=== PATIENT | female | born 1935 | race Caucasian/White ===

== ENCOUNTER 2025-04-03 20:50 | Observation (INO) | payer OTHER, SELFPAY ==
[2025-04-03 16:58] VITALS: BP 129/56
[2025-04-03 16:59] LABS: Glucose - Point of Care 147 mg/dl (70-99)
[2025-04-03 17:01] VITALS: BP 113/54
[2025-04-03 17:02] VITALS: BP 118/61
--- NOTE | 2025-04-03 17:10 | ED.GENMED ---
History of Present Illness
<FERN Brian - Last Filed: 04/04/25 01:20>
General
Chief Complaint: Change in Mental Status
Source: patient
Exam Limitations: none
Time Seen by Provider: 04/03/25 17:07
Nursing documentation reviewed up to this point in time: agreed with
History of Present Illness
History of Present Illness:
89-year-old female brought by family for change in mental status. Family reports 20 minutes prior to arrival patient was sitting in a car as a passenger and disoriented falling asleep and was not able to stand. They drove pt directly to the ED.
Approximately 3:45 PM the initial episode started when family describes patient was a passenger in a car and started to become confused. She told family that she fell like she was in a tunnel. They got her chocolate bar and symptoms seem to
improve until 20 minutes ago when she could not stand to get out of the car. They do note that patient seems garbled.
Patient presents sleepy falling asleep however will open her eyes. She will answer questions appropriately. She will follow commands. Her speech is garbled family reports this is new. Stroke alert was called.
Family reports patient is visiting from [place]. Her son recently and the service was on Wednesday 3 days ago.
They do not believe that she is on blood thinners.
Phy Exam
<FERN Brian - Last Filed: 04/04/25 01:20>
General Physical Exam
General Presentation: no apparent distress
General age: appears stated age
General Skin: warm and dry
General Habitus: elderly
General Mental: other (tearful )
General Hydration: appears well hydrated
Cardiovascular Exam
Cardiovascular Exam: regular rate/rhythm, no murmur and normal peripheral pulses
Pulmonary Exam
Pulmonary Exam: lungs clear and no respiratory distress
Neurological Exam
Neurological Exam: alert, oriented x3, no motor deficits, no sensory deficits and other (speech garbled )
NIH Stroke Score
Level of Consciousness: 1 - Arousable
LOC questions: 0-Answers both correctly
LOC Commands: 0-Performs both correctly
Best Gaze: 0-Normal
Visual Rod: 0=Normal, no visual loss
Facial palsy: 0=Normal, symmetrical
Motor - Right Arm: 0=No drift 10 seconds
Motor - Left Arm: 0=No drift 10 seconds
Motor - Right Le-No drift 5 seconds
Motor - Left Le-No drift 5 seconds
Limb Ataxia: 0-Absent
Sensation: 0-Normal
Best Language: 0-No aphasia
Dysarthria: 1-Mild slurring
Extinction and Inattention: 0-No abnormality
Total Score:: 2
[place] Coma Scale
Eye Opening: Spontaneous
Verbal Response: Oriented
Motor Response: Obeys Commands
GCS Total Score: 15
Musculoskeletal Exam
Musculoskeletal Exam: full ROM
Skin Exam
Skin Exam: normal color and warm/dry
Psychiatric Exam
Psychiatric Exam: normal mood/affect
<Emmanuel Whitney DO - Last Filed: 04/03/25 17:47>
NIH Stroke Score
Total Score:: 2
[place] Coma Scale
GCS Total Score: 15
Course
<FERN Brian - Last Filed: 04/04/25 01:20>
Orders/Labs/Results
Orders:
Orders
04/03/25 Dinner
1800 calorie (15 carb) Diabetic
At Your Request: Limited Participation
Does patient need a safe tray?: No
04/03/25 16:57
EKG [Electrocardiogram (*1)] Urgent
Reason for Study: Chest Pain
EKG- Treatment ONCE
04/03/25 16:58
Bedside Glucose- Treatment ONCE
IV Insert/Care/Rem.- Treatment PRN
O2 Therapy [RESP] Urgent
Titrate/Wean O2 to maintain O2 sat greater than (%): 93
Special Instructions: MAINTAIN CONTINUOUS O2 SATS > OR = 93%
04/03/25 17:00
CT HEAD STROKE ALERT W/o Cont Urgent
Comment:
Reason For Exam: sudden shange in mental status
04/03/25 17:01
Bedside Glucose- Treatment ONCE
04/03/25 17:03
Complete Blood Count/With Diff Urgent
Comprehensive Metabolic Panel Urgent
PTT Urgent
Prothrombin Time Urgent
Troponin I Urgent
04/03/25 17:09
CT BRAIN PERF STROKE ALERT Urgent
Reason For Exam: dysarthruia
CT HEAD/NECK ANG STROKE ALERT Urgent
Reason For Exam: dysarhtia change in ms
04/03/25 17:14
0.9% Sodium Chloride 1000 ml [Nss] 1,000 ml IV BOLUS
04/03/25 18:19
UA Reflex to Culture [Urinalysis Reflex To Culture] Urgent
Date Specimen was Collected: 04/03/25
Time Specimen was Collected: 18:18
04/03/25 18:39
COVID-19 Antigen Urgent
Source: Nasal Swab
Influenza A+B Rapid Molecular Urgent
JANAY Source: Nasal Swab
Specimen Description:
04/03/25 20:00
Admit/Transfer Patient As Directed
Co-Sign Provider:
Level of Care: Observation services
Assign to:: Telemetry
Physician / Group: maximiliano luna
Diagnosis: acute confusion drowsiness 2/2 accidental OD gabapentin
Reason for Telemetry: Arrhythmia
Date to Stop Telemetry: 04/06/25
Time to Stop Telemetry: 11:00
Code Status As Directed
Resuscitation Status: Full Code
04/03/25 20:03
PRN Pain Medication Management As Directed
May give lesser potent ordered pain med per pt: Yes
preference::
Protocol:: Medication orders for pain may be administered in a
manner that supports deferring to patient preference
when the pt is:
- Requesting an ordered lesser potent pain medication.
Least to most potent pain medications are defined
as: acetaminophen < NSAID < tramadol < opioids
(morphine, oxycodone, hydromorphone).
- Requesting a lesser dose of the same medication IF
ORDERED.
- Requesting a less intrusive route of administration
if both routes are prescribed by the provider (PO <
IV).
04/03/25 20:24
Consult Neurology [NEUROLOGY CONSULT] Routine
Consulting Provider: Michael Shelby
Was physician already notified: Yes
Reason for consult: confusion likely 2/2 accidental gabapentin overdose
04/03/25 22:17
Acetaminophen [Tylenol] 650 mg PO Q4HPRN PRN
04/03/25 22:17
Activity As Directed
Activity Level: With Assistance
Intake/ Output As Directed
Frequency: Per unit guidelines
Neurological Checks As Directed
Frequency: q4h
Pneumatic Compression Sleeves As Directed
Type: Knee high
Vital Signs As Directed
Frequency: Per unit guidelines
Weight As Directed
Frequency: Daily
Ot Eval And Treat Routine
Pt Eval And Treat Routine
Activity Level: With Assistance
DX Deep Vein Thrombosis Video Routine
04/04/25 06:00
Cardiovascular Evaluation IN AM
Complete Blood Count/With Diff IN AM
Comprehensive Metabolic Panel IN AM
Hgba1c [Glycohemoglobin (HgbA1c)] IN AM
04/04/25 07:00
Levothyroxine [Synthroid] 50 mcg PO DAILY@0700
04/04/25 08:00
Amlodipine [Norvasc] 2.5 mg PO DAILY
Atorvastatin [Lipitor] 20 mg PO DAILY
Carvedilol [Coreg] 3.125 mg PO BID
Ezetimibe [Zetia] 10 mg PO DAILY
04/06/25 11:00
DC Protocol for Telemetry ONCE
Abnormal Lab Results
04/03/25 04/03/25
16:58 17:03
WBC 4.2 L 10^3/uL
(4.8-10.8)
RBC 4.02 L 10^6/uL
(4.20-5.40)
Hct 36.9 L %
(37.0-47.0)
MCHC 32.8 L g/dL
(33.0-37.0)
MPV 10.9 H fL
(7.4-10.4)
Absolute Lymphs (auto) 1.1 L 10^3/uL
(1.2-3.4)
Absolute Monos (auto) 0.8 H 10^3/uL
(0.1-0.6)
Monocytes % 18.5 H %
(1.7-9.3)
PT 14.7 H Sec
(11.4-14.6)
BUN 20 H mg/dl
(7-17)
Glucose 155 H mg/dl
(70-99)
POC Glucose 147 H mg/dl
(70-99)
04/03/25 17:03
04/03/25 17:03
Vital Signs
Initial and Last Documented VS:
Initial Vital Signs
Pulse Resp BP Pulse Ox
77 16 129/56 97
04/03/25 16:58 04/03/25 16:58 04/03/25 16:58 04/03/25 16:58
Last Documented Vital Signs
Temp Pulse Resp BP Pulse Ox
97.6 F 75 15 130/54 98
04/03/25 23:19 04/03/25 23:19 04/03/25 23:19 04/03/25 23:19 04/03/25 23:19
Street Light Repairer Helper consulted with Physician
Street Light Repairer Helper consulted with physician?: Yes
Name of Physician Consulted: Devonte
<Emmanuel Coon Devonte, DO - Last Filed: 04/03/25 17:47>
Orders/Labs/Results
Orders:
Orders
04/03/25 Dinner
1800 calorie (15 carb) Diabetic
At Your Request: Limited Participation
Does patient need a safe tray?: No
04/03/25 16:57
EKG [Electrocardiogram (*1)] Urgent
Reason for Study: Chest Pain
EKG- Treatment ONCE
04/03/25 16:58
Bedside Glucose- Treatment ONCE
IV Insert/Care/Rem.- Treatment PRN
O2 Therapy [RESP] Urgent
Titrate/Wean O2 to maintain O2 sat greater than (%): 93
Special Instructions: MAINTAIN CONTINUOUS O2 SATS > OR = 93%
04/03/25 17:00
CT HEAD STROKE ALERT W/o Cont Urgent
Comment:
Reason For Exam: sudden shange in mental status
04/03/25 17:01
Bedside Glucose- Treatment ONCE
04/03/25 17:03
Complete Blood Count/With Diff Urgent
Comprehensive Metabolic Panel Urgent
PTT Urgent
Prothrombin Time Urgent
Troponin I Urgent
04/03/25 17:09
CT BRAIN PERF STROKE ALERT Urgent
Reason For Exam: dysarthruia
CT HEAD/NECK ANG STROKE ALERT Urgent
Reason For Exam: dysarhtia change in ms
04/03/25 17:14
0.9% Sodium Chloride 1000 ml [Nss] 1,000 ml IV BOLUS
04/03/25 18:19
UA Reflex to Culture [Urinalysis Reflex To Culture] Urgent
Date Specimen was Collected: 04/03/25
Time Specimen was Collected: 18:18
04/03/25 18:39
COVID-19 Antigen Urgent
Source: Nasal Swab
Influenza A+B Rapid Molecular Urgent
JANAY Source: Nasal Swab
Specimen Description:
04/03/25 20:00
Admit/Transfer Patient As Directed
Co-Sign Provider:
Level of Care: Observation services
Assign to:: Telemetry
Physician / Group: maximiliano luna
Diagnosis: acute confusion drowsiness 2/2 accidental OD gabapentin
Reason for Telemetry: Arrhythmia
Date to Stop Telemetry: 04/06/25
Time to Stop Telemetry: 11:00
Code Status As Directed
Resuscitation Status: Full Code
04/03/25 20:03
PRN Pain Medication Management As Directed
May give lesser potent ordered pain med per pt: Yes
preference::
Protocol:: Medication orders for pain may be administered in a
manner that supports deferring to patient preference
when the pt is:
- Requesting an ordered lesser potent pain medication.
Least to most potent pain medications are defined
as: acetaminophen < NSAID < tramadol < opioids
(morphine, oxycodone, hydromorphone).
- Requesting a lesser dose of the same medication IF
ORDERED.
- Requesting a less intrusive route of administration
if both routes are prescribed by the provider (PO <
IV).
04/03/25 20:24
Consult Neurology [NEUROLOGY CONSULT] Routine
Consulting Provider: Michael Shelby
Was physician already notified: Yes
Reason for consult: confusion likely 2/2 accidental gabapentin overdose
04/03/25 22:17
Acetaminophen [Tylenol] 650 mg PO Q4HPRN PRN
04/03/25 22:17
Activity As Directed
Activity Level: With Assistance
Intake/ Output As Directed
Frequency: Per unit guidelines
Neurological Checks As Directed
Frequency: q4h
Pneumatic Compression Sleeves As Directed
Type: Knee high
Vital Signs As Directed
Frequency: Per unit guidelines
Weight As Directed
Frequency: Daily
Ot Eval And Treat Routine
Pt Eval And Treat Routine
Activity Level: With Assistance
DX Deep Vein Thrombosis Video Routine
04/04/25 06:00
Cardiovascular Evaluation IN AM
Complete Blood Count/With Diff IN AM
Comprehensive Metabolic Panel IN AM
Hgba1c [Glycohemoglobin (HgbA1c)] IN AM
04/04/25 07:00
Levothyroxine [Synthroid] 50 mcg PO DAILY@0700
04/04/25 08:00
Amlodipine [Norvasc] 2.5 mg PO DAILY
Atorvastatin [Lipitor] 20 mg PO DAILY
Carvedilol [Coreg] 3.125 mg PO BID
Ezetimibe [Zetia] 10 mg PO DAILY
04/06/25 11:00
DC Protocol for Telemetry ONCE
Abnormal Lab Results
04/03/25 04/03/25
16:58 17:03
WBC 4.2 L 10^3/uL
(4.8-10.8)
RBC 4.02 L 10^6/uL
(4.20-5.40)
Hct 36.9 L %
(37.0-47.0)
MCHC 32.8 L g/dL
(33.0-37.0)
MPV 10.9 H fL
(7.4-10.4)
Absolute Lymphs (auto) 1.1 L 10^3/uL
(1.2-3.4)
Absolute Monos (auto) 0.8 H 10^3/uL
(0.1-0.6)
Monocytes % 18.5 H %
(1.7-9.3)
PT 14.7 H Sec
(11.4-14.6)
BUN 20 H mg/dl
(7-17)
Glucose 155 H mg/dl
(70-99)
POC Glucose 147 H mg/dl
(70-99)
04/03/25 17:03
04/03/25 17:03
Vital Signs
Initial and Last Documented VS:
Initial Vital Signs
Pulse Resp BP Pulse Ox
77 16 129/56 97
04/03/25 16:58 04/03/25 16:58 04/03/25 16:58 04/03/25 16:58
Last Documented Vital Signs
Temp Pulse Resp BP Pulse Ox
97.6 F 75 15 130/54 98
04/03/25 23:19 04/03/25 23:19 04/03/25 23:19 04/03/25 23:19 04/03/25 23:19
<FERN Brian - Last Filed: 04/04/25 01:20>
MDM/Problems Addressed
Differential Diagnosis Includes:
Not limited to acute stroke metabolic encephalopathy
MDM/Problems Addressed:
As documented patient was brought by family. Patient is a 89-year-old female with acute change in mental status. Initial episode occurred at 3:45pm then a second episode occurred 20 minutes prior to arrival. Patient became suddenly confused
disoriented falling asleep and was not able to stand witnessed by family. Patient presented to the ER sleepy however will open her eyes and answer questions. Her speech is garbled. This is new as per family. Stroke alert was called. She had no
focal upper or lower extremity deficits. She is oriented.
CT head neg.
pt is from [place],
1740: I spoke with telestroke at [facility], neurology fellow . Case reviewed patient's presentation reviewed. Dr. Mares was able to visualize brain.
perfusion and head and neck CTA and does not see any abnormalities or large vessel occlusion.
Patient's speech seems to be improving as per family. She remains now awake alert family at bedside she is speaking with family; no focal deficit visualized.
Will adm for change in MS
Chronic conditions affecting care:
CHF hypertension hyperlipidemia,stroke
<FERN Brian - Last Filed: 04/04/25 01:20>
*Radiology
Radiology exam reviewed: radiology read reviewed
*Pulse Oximetry
SaO2: 98
Oxygen Mode of Delivery: Room air
Patient hypoxic: no
*Critical Care Note
Total Time (30-74mins, 75-104mins- exclusive of procedures): Not Applicable
ED Attending Note
<FERN Brian - Last Filed: 04/04/25 01:20>
-
Portions of this chart may have been created with voice recognition software.� Occasional wrong word or��sound alike� substitutions may have occurred due to the inherent limitations of voice recognition software.
<Emmanuel Whitney DO - Last Filed: 04/03/25 17:47>
ED Attending Note
Patient seen and examined by attending physician: Yes
I performed the substantive portion of visit, reviewed & personally made and approve the management plan that is documented in note by myself or MARCIA.: Yes
ED Attending Note:
I evaluated the patient bedside. The patient is dysarthric and frequently keeps her eyes closed. When we sat her up in bed she seemed to open them more. The etiology of her symptoms is unclear. She has no focal extremity motor deficits and
appears generally weak. Unclear if this is more metabolic or medication related. [facility] was notified and recommends against TNK and there is no LVO.
Discharge Plan
Departure
Patient Disposition: Admit
Date of Disposition: 04/03/25
Time of Disposition: 18:39
Admit to: Telemetry
Admit to doctor: hospitalist
Presentation/result/management discussed w/ accepting MD/DO: Hospitalist
Patient with high blood pressure during this ER visit?: No
Condition: Fair
Covid-19: Not Applicable
Discharge Problem:
Acute alteration in mental status
Interventions
Interventions:
*Risk Screen - Suicide Last Done: 04/03/25 17:12
*General Assessment Last Done: 04/03/25 17:12
*Neglect/Abuse Screening Last Done: 04/03/25 17:12
*ED- Fall Risk Assessment Last Done: 04/03/25 22:27
*ED COVID-19 Vaccine History Last Done: 04/03/25 17:12
*ED Influenza Vaccine History Last Done: 04/03/25 17:12
*Nursing Disposition Last Done: 04/03/25 22:27
ED- Pulmonary Assessment Last Done: 04/03/25 17:12
ED- Neurological Assessment Last Done: 04/03/25 17:35
ED- Cardiac Assessment Last Done: 04/03/25 17:12
ED Swallowing Screen Last Done: 04/03/25 17:12
[2025-04-03 17:18] LABS: Hematocrit 36.9 % (37.0-47.0); Hemoglobin 12.1 g/dL (12.0-16.0); Mean Corp Hgb Conc. 32.8 g/dL (33.0-37.0); Mean Corpuscular Volume 91.8 fL (81.0-99.0); Nucleated Red Blood Cells % 0 %; Platelet Count 141 10^3/uL (130-400); Red Cell Dist. Width 14.5 % (11.5-14.5)
[2025-04-03 17:31] LABS: APTT 32.1 Sec (23.4-35.0); INR 1.12; PT 14.7 Sec (11.4-14.6)
[2025-04-03 17:36] LABS: ALT (SGPT) 18 U/L (0-35); AST (SGOT) 22 U/L (14-36); Albumin 4.1 g/dl (3.5-5.0); Alkaline Phosphatase 85 U/L (38-126); Blood Urea Nitrogen 20 mg/dl (7-17); Calcium 8.9 mg/dl (8.4-10.2); Carbon Dioxide 28 mmol/L (22-30); Chloride 102 mmol/L (98-107); Glucose 155 mg/dl (70-99); Potassium 4.1 mmol/L (3.5-5.1); Sodium 135 mmol/L (135-145); Total Protein 7.0 g/dl (6.3-8.2); eGFR 53.85
[2025-04-03 17:42] LABS: Troponin I < 0.012 ng/ml
[2025-04-03] MEDS: NSS 1000 IV (17:46)
[2025-04-03 18:00] VITALS: BP 118/53
[2025-04-03 18:33] LABS: Urine Character Clear (Clear)
--- NOTE | 2025-04-03 18:35 | HPS.HSE ---
Family Physician
-
Family Physician:
Chief Complaint
-
Confusion, lethargy
History of Present Illness
89-year-old female from [place] came to attend her son's Wednesday 3 days ago and while driving in a car today as a passenger at 3:15 PM she was reportedly complaining of feeling like she was in a tunnel with a feeeling from her head to
her toes and she started to become confused asking her niece 'what are we talking about'. Her niece reports She gave her a chocolate bar which seemed to improve until 20 minutes ago when she will to stand and get out of the car outside . The
family then decided to bring her to the ER for Eval They also felt that her speech was somewhat garbled. In the ER she presented lethargic fall asleep but did open eyes and answer questions appropriately for ER stay. A stroke alert was called
patient had CTA and neck with no large occlusion TNK was not did. The pt typically lives by herself, drives a car and is fullyn indepenedent. She is currently having a hard time staying awake . I spoke with [facility] who reports
patient was prescribed gabapentin and october 600 mg 4 times daily. Her she was taking that for her neck pain. It does not appear that she tapered up on this medication as it was prescribed 600 mg in October 4 times daily. She took 600 mg at 9 AM then
again at 12 PM for getting in the car with her niece to go out shortly after going on their way she started saying she felt a little loopy.
She has past medical history of hypertension, hyperlipidemia, CVA, urinary stress incontinence, arthritis .
Medical History
Past Medical History
Past Medical History: Reports Other
Additional Past Medical History:
HTN
HLD
CHF
Urinary stress incontinence
Chronic arthritic pain
Past Surgical History: Reports Other
Additional Past Surgical History:
Appendectomy
Back surgery
Social History
Tobacco: Non-smoker
Alcohol: Occasional
Personal: Single
Living: Alone
Employment: Retired
Family History
Family History: Not pertinent
Allergies / Home Medications
Allergies reflects when Allergies were last updated in [facility].
Home Medications with original date entered in [facility]
Allergy/Medication List:
Allergies
Allergy/AdvReac Type Severity Reaction Status Date / Time
No Known Allergies Allergy Unverified 04/03/25 17:00
Home Medications
amlodipine 2.5 mg tablet 2.5 mg PO DAILY 04/03/25
atorvastatin 20 mg tablet 20 mg PO DAILY 04/03/25
carvedilol 3.125 mg tablet 3.125 mg PO BID 04/03/25
ezetimibe 10 mg tablet 10 mg PO DAILY 04/03/25
furosemide 20 mg tablet 20 mg PO BID 04/03/25
gabapentin 600 mg tablet 600 mg PO QID 04/03/25
levothyroxine 50 mcg tablet 50 mcg PO DAILY@07 04/03/25
potassium chloride 8 mEq tablet,extended release 16 meq PO DAILY 04/03/25
spironolactone 25 mg tablet 25 mg PO DAILY 04/03/25
trospium 20 mg tablet 20 mg PO DAILY 04/03/25
Review of Systems
-
History Source: Patient and Family (To niece at bedside)
A 12 point ROS was completed and negative except as noted: Yes
Constitutional: Reports Fatigue and Other (Drowsy, falling asleep during exam poor recall of history)
EENT: Denies Sore Throat or Runny Nose
Respiratory: Denies Cough or Trouble Breathing
Cardiac: Denies Chest Pain, Diaphoresis, Palpitations or Syncope
Abdomen/GI: Denies Abdominal Pain, Nausea, Vomiting, Diarrhea, Constipated, Bloody Stools or Black Stools
: Denies Dysuria, Frequency, Flank Pain or Incontinence
Musculoskeletal: Denies Joint Pain or Edema
Skin: Denies Itching or Rash
Neurological: Reports Weakness (Generalized with drowsiness falling asleep during exam is oriented to name, place, state, [place] where she lives); Denies Dizzy or Headache
Endocrine: Reports No Symptoms
Hematologic/Lymphatic: Reports No Symptoms
Psych: Reports Calm
Physical Exam
Vital Signs
Vital Signs
Temp Pulse Resp BP Pulse Ox
97.6 F 74 16 118/53 92
04/03/25 17:01 04/03/25 18:30 04/03/25 18:30 04/03/25 18:00 04/03/25 18:30
Physical Exam
General: No Pain, Fever or Chills
HEENT: NormoCephalic, Anicteric, Moist mucous membranes, PERRLA, [place] Conjunctivae and No Ptosis
Respiratory: Clear; No Wheezes, Rales or Rhonchi
Cardiac: S1/S2 and Regular Rhythm; No Murmur, Rub, Gallop or Peripheral Edema
GI: Soft, Non Tender, Non Distended, Normal Bowel Sounds and No Hepatosplenomegaly
Rectal: Deferred by Provider
Genito-urinary: Deferred by me
Musculoskeletal: No Clubbing, No Cyanosis and No Edema
Skin: Warm and Dry; No Rash or Jaundice
Neuro: Nonfocal/grossly intact, Cranial Nerves Intact, No Sensory Deficits and Other (Patient drowsy falls asleep during exam when awoken she is oriented to name, place, year however falls back asleep); No Slurred Speech, Facial Droop, Tremors or
Sedated
Psych: Calm
Laboratory Results
-
04/03/25 17:03
04/03/25 17:03
Laboratory Results
PT 14.7 Sec (11.4-14.6) H 04/03/25 17:03
INR 1.12 04/03/25 17:03
APTT 32.1 Sec (23.4-35.0) 04/03/25 17:03
Total Bilirubin 0.8 mg/dl (0.2-1.3) 04/03/25 17:03
AST 22 U/L (14-36) 04/03/25 17:03
ALT 18 U/L (0-35) 04/03/25 17:03
Alkaline Phosphatase 85 U/L (38-126) 04/03/25 17:03
Troponin I < 0.012 ng/ml 04/03/25 17:03
Impression/Plan
-
Impression/plan:
Observation telemetry
#Acute confusion with garbled speech likely secondary to accidental overdose of gabapentin
#Recent stress loss of son attended 3 days ago 03/31/2025
- COVID and flu swab neg
Patient gabapentin 600 mg at 9 AM and additional 600mg at 12 PM total 1200 mg in 3 hours
- Urinalysis negative
-Check chest x-ray
-Neurochecks q4h
- Patient given 1 L IV NS will hold further fluid get diuresed 800 cc and history of heart failure
-Consult neuro
CTA head and neck: No significant valvular occlusion aneurysm or dissection
EKG: NSR 72 bpm, QTc 451 MS otherwise normal
#HTN
BP 118/61
-Continue Norvasc 2.5 mg daily, carvedilol 3.125 mg p.o. twice daily
#HLD
-Check lipid profile
cont zetia 10mg, zocor 20mg
#CHF unknown type
I/O, daily weights
-HOld lasix 20mg twice daily, spironolactone
#Prediabetes
will check hgba1c
#Urinary stress incontinence
HOLd trospium 20 mg
DVT prophylaxis
SCDs
Full code
[2025-04-03 19:03] LABS: COVID-19 Antigen Negative (Negative)
--- NOTE | 2025-04-03 20:06 | W.PN.UPDATE ---
Update Note
Progress Note Update
This note serves as an addendum to the H&P by technical support technician Yovana Huynh
HPI�
89F from [place] HX HTN, HLD, CHF, Urinary stress incontinence, Chronic arthritic pain seen at ER
- Bi B Family for AMS
- came to attend her son's Wednesday 3 days ago
- while driving in a car with Niece today as a passenger at reportedly confused asking her niece
- Noted garbled speech
- lethargic fall asleep but did open eyes and answer questions appropriately for ER stay.
A stroke alert was called
- NEG CTA H & N with no large occlusion TNK was not indicated
Typically lives by herself, drives a car and is fully interdependent.
Per TELEVISION CABINET FINISHER:
[facility] who reports patient was prescribed gabapentin and october 600 mg 4 times daily for neck pain. It does not appear that she tapered up on this medication as it was prescribed 600 mg in October 4 times daily. She took 600 mg at 9 AM
then again at 12 PM for getting in the car with her niece to go out shortly after going on their way she started saying she felt a little loopy.
Relevant VS
Temp Pulse Resp BP Pulse Ox
97.6 F 74 16 118/53 92
04/03/25 17:01 04/03/25 18:30 04/03/25 18:30 04/03/25 18:00 04/03/25 18:30
PE
General: drowsy but arousable
HEENT: Moist mucous membranes
Neck : supple
Resp: CTA
Cardiac: S1/S2 and RRR
GI: Soft, NT, NG
Rectal: Deferred by Provider
MS: No Edema
Skin:No Rash
Neuro: drowsy falls asleep during exam when awoken she is oriented to name, place, year however falls back asleep) No Slurred Speech, Facial Droop, Tremors or Sedated
Psych: drowsy
Relevant Data
04/03/25
17:03
WBC 4.2 L
Hgb 12.1
Plt Count 141
INR 1.12
BUN 20 H
Creatinine 1.0
eGFR 53.85
Troponin I < 0.012
HCT:
- No acute intracranial abnormality noted.
H & N CTA
- No significant valvular occlusion aneurysm or dissection
EKG:
NSR 72 bpm, QTc 451 MS otherwise normal
NO Prior last hospitalist admission
ASSESSMENT & PLAN
Acute confusional state with garbled speech
Presumed accidental overdose of gabapentin
POS social stressor: loss of son and attended his 3 days ago 03/31/2025
On trospium due to stress incontinence
S/P 1 L IV NS at ER
- NEG COVID and Flu
- NEG UA
- Hold Gabapentin
- Hold trospium due to anticholinergic ADEs
- FU CXR
- Fall precaution
- Q4H Neuro checks
- PT/OT
- Neuro cosult
Essential HTN
Relative hypotension
-c c/w Norvasc + Carvedilol
DLP
- c/w Zetia + Zocor
HX CHF unknown type
- I/O, daily weights
- c/w Lasix 20mg BID
HX Urinary stress incontinence
- Hold trospium due to anticholinergic ADES in elderly
DVT prophylaxis; SCD
Full code
OBS TLM
[2025-04-03 23:19] VITALS: BP 130/54
[2025-04-03 23:20] VITALS: BMI 34.8
[2025-04-04] VITALS (9 sets, daily range): BP systolic 101–141; BP diastolic 50–72; PULSE 69–88; BMI 34.3
[2025-04-04] MEDS: SYNTHROID 50 MCG PO (05:15)
[2025-04-04 07:25] LABS: Hematocrit 33.2 % (37.0-47.0); Hemoglobin 10.9 g/dL (12.0-16.0); Mean Corp Hgb Conc. 32.8 g/dL (33.0-37.0); Mean Corpuscular Volume 94.3 fL (81.0-99.0); Nucleated Red Blood Cells % 0 %; Platelet Count 136 10^3/uL (130-400); Red Cell Dist. Width 14.6 % (11.5-14.5)
[2025-04-04 07:48] LABS: ALT (SGPT) 16 U/L (0-35); AST (SGOT) 18 U/L (14-36); Albumin 3.4 g/dl (3.5-5.0); Alkaline Phosphatase 75 U/L (38-126); Blood Urea Nitrogen 23 mg/dl (7-17); Calcium 8.1 mg/dl (8.4-10.2); Carbon Dioxide 25 mmol/L (22-30); Chloride 103 mmol/L (98-107); Estimated Creatinine Clearance 36 ml/min; Glucose 136 mg/dl (70-99); HDL Cholesterol 39 mg/dl; LDL Cholesterol, Calculated 24 mg/dl; Potassium 3.7 mmol/L (3.5-5.1); Sodium 134 mmol/L (135-145); Total Protein 6.0 g/dl (6.3-8.2); Very Low Density Lipoprotein 43 mg/dl (0-30); eGFR 53.85
[2025-04-04] MEDS: ZETIA 10 MG PO (08:30)
[2025-04-04] MEDS: LIPITOR 20 MG PO (08:30)
[2025-04-04] MEDS: NORVASC 2.5 MG PO (08:31)
[2025-04-04] MEDS: COREG 3.125 MG PO ×2 (08:32→19:44)
[2025-04-04] MEDS: TYLENOL 650 MG PO (08:47)
[2025-04-04 10:40] LABS: Glycohemoglobin (HgbA1c) 6.4 % (4.0-5.6)
--- NOTE | 2025-04-04 11:44 | CON.NEURO4 ---
Addendum entered and electronically signed by Michael Shelby MD 04/04/25 21:09:
I have seen and examined the patient today on 04/04/2025. I have also discussed the patient's assessment and the management plan with nurse practitioner Lilian Junior. I agree with the nurse practitioner Lilian Junior's assessment and plan.
My assessment and plan is given as below.
This is a 89-year-old female who has presented to the hospital on 04/03/25 with report of confusion and garbled speech. Patient and her family at bedside report that her son recently and they are here visiting from [place] for his
service. Yesterday (04/03/25), her daughter reports that they went to his burial and then were in the car driving when suddenly she became confused. She also notes that she has been on Gabapentin 400mg four times a day and she took her
morning and afternoon doses fairly close together prior to leaving for the yesterday. She reports at baseline feeling tired most of the time, she is unsure if this is due to her gabapentin usage.
CT head and CTA head/neck were unremarkable.
Is is unlikely that the patient had a stroke. Given the stress of travel and visiting from [place] for the service of her son, may also have contributed to causing her symptoms. She reports feeling back to her baseline and her daughter
also agrees with it. There is no need at this time for further workup like MRI brain. She was advised to follow-up with her physician in [place] and if possible the dose of Gabapentin needs to be decreased.
We will sign off. Please call if you have any question.
Original Note:
Consultation - Neurology 4
-
CONSULTING PHYSICIAN: Michael Shelby MD
REFERRING PHYSICIAN: Hospitalists/FERN Pizarro
DICTATED BY: FERN Junior
DATE/TIME OF REQUEST: 04/03/25
DATE/TIME OF CONSULTATION: 04/04/25
Reason for Consultation: Change in mental status
History of Present Illness:
This is a 89-year-old female who has presented to the hospital on 04/03/25 with report of confusion and garbled speech. Patient and her family at bedside report that her son recently and they are here visiting from [place] for his
service. Yesterday (04/03/25), her daughter reports that they went to his burial and then were in the car driving when suddenly she became confused in conversation and her speech sounded garbled. The patient does not completely remember the
event but recalls that her eyes felt very heavy for several hours. She also notes that she has been on gabapentin four times a day and she took her morning and afternoon doses fairly close together prior to leaving for the . She reports at
baseline feeling tired most of the time, she is unsure if this is due to her gabapentin usage. CT head, CTA head/neck, and CT brain perfusion were obtained on arrival and are negative for any acute abnormalities. NIHSS was 2 for drowsiness and mild
dysarthria. She was not a candidate for TNK/IAT due to low NIHSS, suspicion for metabolic disturbance producing symptoms. Today (04/04/25), she reports feeling back at her baseline. She denies any headache, dizziness, vision changes, speech/swallow
difficulty, numbness, and weakness. She does note that since her gabapentin has been held her legs have been cramping.
Past Medical History: HTN, HLD, CHF, urinary stress incontinence, chronic arthritic pain
Surgical History: Appendectomy, back surgery
Family History: Reviewed and noncontributory.
Social History: Occasional alcohol. Denies tobacco and illicit drug use.
Allergies: No known allergies.
Home Medications: See below.
Review of Symptoms:
Patient denies any fever, headache, chest pain, shortness of breath, GI or symptoms.
�Per the HPI.�All systems are reviewed negative except above.
Physical Exam:
The patient is afebrile, abdomen is nondistended, breathing is unlabored, skin is warm and dry, no edema.
Neurologic Examination:
The patient is awake, alert and oriented x 3. She is able to follow commands and answer questions appropriately. There is no aphasia or dysarthria. On cranial nerve assessment, pupils are 3 mm bilateral, round and reactive to light and
accommodation. Visual rod are full. Extraocular movements are intact. Facial sensations are intact and bilaterally symmetrical, there is no facial asymmetry. Hearing is intact bilaterally to normal conversation volume. Tongue palate and uvula are
midline. Sternocleidomastoid strengths are full bilaterally. Motor strengths are 5/5 bilateral upper and lower extremities on medical research [place] scale. There is no drift or involuntary movement noted. There was no extinction noted on double
simultaneous stimulation. Coordination is intact by finger to nose bilaterally.
Lab Results: See below.
Neuro Imaging:
1. CT head 04/03/25: No acute intracranial abnormality noted. ASPECTS Score: 10.
2. CTA head/neck 04/03/25: No significant vascular occlusion, aneurysm or dissection.
3. CT brain perfusion 04/03/25: CBF 0, Tmax 0.
Differentials for the patient's presentation include:
1. Transient change in mental status; etiology is likely toxic metabolic encephalopathy due to gabapentin usage, very low concern for stroke.
Patient has the following risk factors for their symptoms: gabapentin usage, stress, age
IV Tenecteplase/IAT candidacy: She was not a candidate for TNK/IAT due to low NIHSS, suspicion for metabolic disturbance producing symptoms.
Recommendations:
-Consideration for reducing gabapentin dosage from 600mg QID to 400mg QID and gradually continuing to lower dose.
-Checking blood work for metabolic abnormalities.
-Checking a ferritin level to determine if this may be contributing to leg cramping sensation.
-Do not see a role for further neurological imaging at this time.
Discussed patient care with: Dr. Shelby, the patient, patient's family
Vital Signs and Labs
-
Vital Signs and Labs:
Vital Signs
Temp Pulse Resp BP Pulse Ox
98.3 F 69 16 117/64 95
04/04/25 11:34 04/04/25 11:34 04/04/25 11:34 04/04/25 11:34 04/04/25 11:34
Lab Results
04/04/25 06:42
04/04/25 06:42
PT 14.7 Sec (11.4-14.6) H 04/03/25 17:03
INR 1.12 04/03/25 17:03
APTT 32.1 Sec (23.4-35.0) 04/03/25 17:03
Sodium 134 mmol/L (135-145) L 04/04/25 06:42
Potassium 3.7 mmol/L (3.5-5.1) 04/04/25 06:42
BUN 23 mg/dl (7-17) H 04/04/25 06:42
Glucose 136 mg/dl (70-99) H 04/04/25 06:42
Calcium 8.1 mg/dl (8.4-10.2) L 04/04/25 06:42
LDL Cholesterol, Calc 24 mg/dl 04/04/25 06:42
Medications
-
Active Medications
Generic Name Dose Route Start Last Admin
Trade Name Freq PRN Reason Stop Dose Admin
Acetaminophen 650 mg 04/03/25 22:17 04/04/25 08:47
Acetaminophen 325 Mg Tablet PO 05/01/25 22:16 650 mg
Q4HPRN PRN Administration
mild pain/LEDBETTER/temp> 100.4F
Amlodipine Besylate 2.5 mg 04/04/25 08:00 04/04/25 08:31
Amlodipine 2.5 Mg Tablet PO 05/02/25 07:59 2.5 mg
DAILY DEYA Administration
Atorvastatin Calcium 20 mg 04/04/25 08:00 04/04/25 08:30
Atorvastatin (Lipitor) 20 Mg Tablet PO 05/02/25 07:59 20 mg
DAILY DEYA Administration
Carvedilol 3.125 mg 04/04/25 08:00 04/04/25 08:32
Carvedilol 3.125 Mg Tablet PO 05/02/25 07:59 3.125 mg
BID DEYA Administration
Ezetimibe 10 mg 04/04/25 08:00 04/04/25 08:30
Ezetimibe (Zetia) 10 Mg Tablet PO 05/02/25 07:59 10 mg
DAILY DEYA Administration
Levothyroxine Sodium 50 mcg 04/04/25 07:00 04/04/25 05:15
Levothyroxine 50 Mcg Tablet PO 05/02/25 06:59 50 mcg
DAILY@0700 DEYA Administration
Home Medications
�Medication �Instructions �Recorded
amlodipine 2.5 mg tablet 2.5 mg PO DAILY Blood Pressure 04/03/25
atorvastatin 20 mg tablet 20 mg PO DAILY High Cholesterol 04/03/25
carvedilol 3.125 mg tablet 3.125 mg PO BID Heart Failure 04/03/25
ezetimibe 10 mg tablet 10 mg PO DAILY High Cholesterol 04/03/25
furosemide 20 mg tablet 20 mg PO BID Fluid 04/03/25
Retention/Swelling
gabapentin 600 mg tablet 600 mg PO QID Neurological 04/03/25
Condition
levothyroxine 50 mcg tablet 50 mcg PO DAILY@07 Thyroid 04/03/25
potassium chloride 8 mEq 16 meq PO DAILY Supplement 04/03/25
tablet,extended release
spironolactone 25 mg tablet 25 mg PO DAILY Fluid 04/03/25
Retention/Swelling
trospium 20 mg tablet 20 mg PO DAILY Lung/Breathing 04/03/25
Issues
NIH Stroke Score
Subsequent NIH Scale
Date of Subsequent NIH Scale: 04/04/25
Time of Subsequent NIH Scale: 09:30
NIH Stroke Score
Level of Consciousness: 0 - Alert
LOC Questions: 0-Answers both correctly
LOC Commands: 0-Performs both correctly
Best Horizontal Gaze: 0-Normal
Visual Rod: 0=Normal, no visual loss
Facial Palsy: 0=Normal, symmetrical
Motor - Right Arm: 0=No drift 10 seconds
Motor - Left Arm: 0=No drift 10 seconds
Motor - Right Le-No drift 5 seconds
Motor - Left Le-No drift 5 seconds
Limb Ataxia: 0-Absent
Sensation: 0-Normal
Best Language: 0-No aphasia
Dysarthria: 0-Normal
Extinction and Inattention: 0-No abnormality
NIH Total Score:: 0
Modified Nelson (mRS) Score
Modified Roland Scale (mRS): No symptoms
Score: 0
Alteplase Contraindication
Inclusion and Exclusion criteria reviewed: Yes
IAT Contraindications: NIHSS < 6 and Imaging doesn't show large vessel occlusion as cause of stroke
[2025-04-04 13:21] LABS: Ferritin 76.4 ng/ml (11.1-264.0)
[2025-04-04 13:36] LABS: Vitamin B12 783 pg/ml (239-931)
--- NOTE | 2025-04-04 13:41 | W.PN.HOSP.TC ---
Today's Communication/Plan
-
decrease gabapentin
await T4, B12, folate
fever - check CXR
Assessment / Plan
Assessment / Plan
89Fw/ HTN, HLD, CHF, Urinary stress incontinence, Chronic arthritic pain, p/w confusion, aphasia.
Acute toxic/metabolic encephalopathy
Pt presented with acute confusional state with garbled speech in setting of significant stress (loss of son and attended his 03/31)
Presumed accidental overdose of gabapentin (took her morning and afternoon doses too close together)
Also on trospium due to stress incontinence, possibly contributed
- NEG COVID and Flu, UA WNL
- check b12, folate
- TSH abnormal at 0.14, check T4.
- Fever to 100.8F overnight, now afebrile, no leukocytosis, checking CXR
- Held Gabapentin, cautiously resume at lower dose/frequency of 400mg TID. If she has worsening neuropathy/pain can augment with other medications such as pregabalin, duloxetine, amitriptyline
- Hold trospium due to anticholinergic AEs
- Fall precaution
- Q4H Neuro checks
- PT/OT rec home
- Neuro consult appreciated
Essential HTN
- BP controlled
c/w Norvasc + Carvedilol + lasix
HLD
- c/w Zetia + Zocor
Hx CHF unknown type
- I/O, daily weights
- resume Lasix 20mg BID
HX Urinary stress incontinence
- Hold trospium due to anticholinergic effects in elderly
Hypothyroidism
low TSH check T4 and adjust accordingly
DVT prophylaxis
lovenox
Full code
Anticipated Discharge: Within 24 hours
Subjective/Interval History
-
Date of Service: April 04, 2025
Patient reports feeling almost back to baseline, she still feels a little bit of fog. Niece at bedside also notes she is having some memory issues but otherwise much improved from yesterday.
Objective Data
-
Labs:
Laboratory Results
04/04/25
06:42
WBC 4.9
Hgb 10.9 L
Hct 33.2 L
Plt Count 136
Sodium 134 L
Potassium 3.7
Chloride 103
Carbon Dioxide 25
BUN 23 H
Creatinine 1.0
Glucose 136 H
Calcium 8.1 L
Total Bilirubin 0.5
AST 18
ALT 16
Alkaline Phosphatase 75
Vital Signs:
Vital Signs
Temp Pulse Resp BP Pulse Ox
98.3 F 69 16 117/64 95
04/04/25 11:34 04/04/25 11:34 04/04/25 11:34 04/04/25 11:34 04/04/25 11:34
I&O
04/03/25 04/04/25 04/05/25
06:59 06:59 06:59
Intake Total 480 / 480
Output Total 250 / 250
Balance 230 / 230
Review of Systems
-
All other systems: Reviewed and negative
Physical Exam
-
General: No Apparent Distress
HEENT: Moist Mucous Membranes, Anicteric and PERRLA
Respiratory: Clear to Auscultation; Negative Wheezes, Rales or Rhonchi
Cardiac: Regular Rhythm and S1/S2; Negative Murmur, Rub or Gallop
GI: Soft, Nontender, Nondistended and Normal Bowel Sounds
Musculoskeletal: No Edema
Skin: Warm and Dry; Negative Rash, Ulcers or Lesions
Neuro: Awake, Alert and Oriented
Hematologic / Lymphatic: No Lymphadenopathy
Psych: Calm
Data Reviewed
-
CT Scan: Report Reviewed by me and Discussed with Patient
Labs: Labs Reviewed by me, Discussed with Patient and Discussed with Family
[2025-04-04 14:04] LABS: Folate > 20.0 ng/ml (2.76-20)
[2025-04-04] MEDS: DESENEX/MITRAZOL/ZEASORB 1 APPLIC TOPICAL ×2 (15:04→19:44)
--- NOTE | 2025-04-04 15:20 | CM ---
Alert awake oriented patient who lives in [place] alone in a 1 story home with 3 steps to enter.She is independent in activates of daily living.She uses a Cpap from [place] when [place] became ill.She is staying
with dgt Huang explained copy given signed and on chart.
VN in past . No SNF hx
Pharmacy [facility]
PCP in [place] she forgets name
PLAN Home with no needs
[2025-04-04] MEDS: NEURONTIN 400 MG PO ×2 (17:08→21:08)
[2025-04-04] MEDS: LOVENOX 40 MG SC (17:09)
[2025-04-04] MEDS: LASIX 20 MG PO (19:45)
[2025-04-04 21:50] LABS: Glucose - Point of Care 157 mg/dl (70-99)
[2025-04-05 03:15] VITALS: BP 123/63
[2025-04-05 06:00] VITALS: BMI 33.7
[2025-04-05] MEDS: SYNTHROID 50 MCG PO (06:32)
[2025-04-05 07:39] VITALS: BP 149/67
[2025-04-05 08:14] LABS: Glucose - Point of Care 111 mg/dl (70-99)
[2025-04-05 08:46] LABS: Hematocrit 37.8 % (37.0-47.0); Hemoglobin 12.2 g/dL (12.0-16.0); Mean Corp Hgb Conc. 32.3 g/dL (33.0-37.0); Mean Corpuscular Volume 94.7 fL (81.0-99.0); Nucleated Red Blood Cells % 0 %; Platelet Count 151 10^3/uL (130-400); Red Cell Dist. Width 14.5 % (11.5-14.5)
[2025-04-05] MEDS: NOVOLOG FLEXPEN-LOW RESISTANCE SC (08:52)
--- NOTE | 2025-04-05 08:54 | W.DCSUMMARY ---
Discharge Summary
Discharge Data
Date of Admission: 04/03/25
Date of Discharge: 04/05/25
Total time spent discharging patient (in min): 35
-
Pending Results: No
Hospital Course
Attending physician on day of discharge:
Ree Hung MD
Admission diagnosis:
Acute confusion
Discharge diagnosis:
Toxic metabolic encephalopathy
Secondary diagnoses:
Prediabetes
HTN
HLD
CHF
Hypothyroidism
Stress incontinence
Neuropathic pain
Consultations:
Neurology
Procedures:
None
Hospital course:
89Fw/ HTN, HLD, CHF, Urinary stress incontinence, Chronic arthritic pain, p/w confusion, aphasia in setting of significant stress (loss of son and attended his 03/31). Presumed accidental overdose of gabapentin (took her morning and
afternoon doses too close together). Also on trospium due to stress incontinence, possibly contributed. Both meds were held, patient had improvement. Patient had a fever to 100.8 F, no leukocytosis, CXR WNL, UA WNL, negative COVID and flu, no
concern for infection, likely just 1 off fever. Patient was seen by neurology, recommended lowering the dose of the gabapentin, dose was lowered to from 600 mg 4 times daily to 400 mg 3 times daily, And trospium was discontinued. Patient also
found to have prediabetes with A1c 6.4%.
Physical exam on discharge:
Gen: NAD
HEENT: PERRLA, EOMI, MMM, neck supple
Cards: RRR, no M/G/R
Resp: Lungs CTAB, no W/R/R
GI: soft, NT/ND/NABS
MSK: No edema
Skin: warm and dry, no rash, ulcer or lesions
Heme: No LAD
Psych: Calm
Neuro: AAOx3
Discharge disposition:
Home
Discharge Plan
-
Patient Disposition: Home (Routine Discharge)
Discharge Diagnosis/Procedures: Encephalopathy - toxic/metabolic
Diet: Diabetic, Carb Controlled
Activity: As tolerated
Instructions: Gabapentin, Toxic-metabolic encephalopathy
Referrals:
PRIVATE,PHYSICIAN [Family Provider, Internal Medicine] - in less than 1 week
Additional Discharge Medication Instructions: Lower gabapentin dose to 400 mg 3 times a day. If you are still experiencing lethargy, the dose can be lowered to twice a day. If you start to experience worsening neuropathic pain due to the lower
dose, your doctor can prescribe an alternative/adjunct such as pregabalin, duloxetine, amitriptyline which may be less likely to cause sedation. You also were found to have prediabetes, and you may benefit from a medication called metformin to
control your blood sugars better, alongside a low sugar diet and exercise, please ask your primary care doctor.
Prescriptions:
New
gabapentin 400 mg Capsule
400 mg PO TID 30 Days Qty: 90 0RF
Continued
atorvastatin 20 mg tablet
20 mg PO DAILY
amlodipine 2.5 mg tablet
2.5 mg PO DAILY
spironolactone 25 mg tablet
25 mg PO DAILY
carvedilol 3.125 mg tablet
3.125 mg PO BID
potassium chloride 8 mEq tablet extended release
16 meq PO DAILY
levothyroxine 50 mcg tablet
50 mcg PO DAILY@07
furosemide 20 mg tablet
20 mg PO BID
Rx Instructions:
may take xtra 20 mg if wt gain 3 lbs in 48 hours
ezetimibe 10 mg tablet
10 mg PO DAILY
Discontinued
gabapentin 600 mg tablet
600 mg PO QID
Rx Instructions:
Patient typically takes 3 times daily AM, noon, dinner
trospium 20 mg Tablet
20 mg PO DAILY
Discharge Orders:
Discharge Patient (As Directed); Ordered 04/05/25
Ordered By: Ree Hung
Discharge Date and Time
Print Language: [place]
[2025-04-05] MEDS: ZETIA 10 MG PO (09:02)
[2025-04-05] MEDS: NEURONTIN 400 MG PO (09:02)
[2025-04-05] MEDS: LIPITOR 20 MG PO (09:03)
[2025-04-05] MEDS: DESENEX/MITRAZOL/ZEASORB 1 APPLIC TOPICAL (09:03)
[2025-04-05] MEDS: LASIX 20 MG PO (09:04)
[2025-04-05] MEDS: COREG 3.125 MG PO (09:04)
[2025-04-05] MEDS: NORVASC 2.5 MG PO (09:05)
[2025-04-05 09:10] LABS: Blood Urea Nitrogen 20 mg/dl (7-17); Calcium 9.0 mg/dl (8.4-10.2); Carbon Dioxide 30 mmol/L (22-30); Chloride 105 mmol/L (98-107); Estimated Creatinine Clearance 35 ml/min; Glucose 118 mg/dl (70-99); Potassium 4.8 mmol/L (3.5-5.1); Sodium 139 mmol/L (135-145); eGFR 53.85
[2025-04-05 11:24] VITALS: BP 144/65
[2025-04-05 11:53] LABS: Glucose - Point of Care 172 mg/dl (70-99)
--- NOTE | 2025-04-05 12:14 | CM ---
Met with patient; reported that Niece will provide transport home
Plan: Discharge to home today; no needs
[2025-04-05] MEDS: NOVOLOG FLEXPEN-LOW RESISTANCE 1 UNITS SC (13:00)
[2025-04-05] MEDS: FLUZONE HIGH-DOSE 2025-26 0.5 ML IM (13:35)
== END 2025-04-05 14:09 | disposition home or self-care (01) ==
LOC: 4 EAST ACU 20:50
PROVIDERS: Clinical Nurse Specialist Family Health; Nurse Practitioner; ADMITTING PHYSICIAN Internal Medicine; ATTENDING PHYSICIAN Internal Medicine; CONSULT PHYSICIAN Psychiatry & Neurology Neurology; EMERGENCY PHYSICIAN Emergency Medicine
DX: G92.8 Other toxic encephalopathy (principal); Z11.52 Encounter for screening for COVID-19; E78.5 Hyperlipidemia, unspecified; I50.9 Heart failure, unspecified; I11.0 Hypertensive heart disease with heart failure; R73.03 Prediabetes; E03.9 Hypothyroidism, unspecified; N39.3 Stress incontinence (female) (male); M79.2 Neuralgia and neuritis, unspecified; T50.901A Poisoning by unspecified drugs, medicaments and biological substances, accidental (unintentional), initial encounter; Z63.4 Disappearance and death of family member; Z79.890 Hormone replacement therapy; Z79.899 Other long term (current) drug therapy
CPT/HCPCS: 0042T; 70450; 70496; 70498; 71046; 80048; 80053; 80061; 81003; 82607; 82728; 82746; 82962; 83036; 84439; 84443; 84484; 85025; 85610; 85730; 87502; 87811; 90662; 93005; 94660; 96360; 97162; 97166; 99285; G0008; G0378; Q9967